=== PATIENT | male | born 1980 | race Caucasian/White ===

== ENCOUNTER 2017-01-22 20:08 | Emergency (ER) | payer SELFPAY ==
[~2017-01-22] VITALS: Ht 177.8 cm; Wt 117.9 kg
[2017-01-22 20:21] VITALS: BP 122/78
[2017-01-22] MEDS ORDERED: CEPH-264 PO (20:34)
[2017-01-22] MEDS ORDERED: FLUT30CR5 TP (20:34)
--- NOTE | 2017-01-22 20:35 | PHYS DOC ---
Past Medical History Past Medical History: Schizophrenia, Other Additional Past Medical Histor: PTSD, Smoking: Cigarettes, Greater than 1 pack/day Alcohol Use: Occasionally Drug Use: None Adult General Chief Complaint Chief Complaint: SKIN PROBLEM [facility] This patient is a pleasant 36 male with a history of multiple superficial skin abscesses that he suffered from in the past. Several years. He has a history of eczema as well as not wall controlled. Patient developed some skin lesions on his chest wall upper right forearm and scrotum that of a gotten progressively larger and more painful over the last week. Patient denies any fevers, chills or other symptoms. Patient has been trying to keep the wounds clean with soap and water without much improvement. He denies any direct trauma to his skin. He is not on any antibiotics allergic to any antibiotics. Patient denies any recent travel outside the country. He denies any other systemic symptoms like joint pain, joint swelling, involvement of his palms or soles, denies any insect bites or recent medication changes. Review of Systems Review of Systems Constitutional: Denies fever or chills [] Eyes: Denies change in visual acuity, redness, or eye pain [] HENT: Denies nasal congestion or sore throat [] Respiratory: Denies cough or shortness of breath [] Cardiovascular: No additional information not addressed in HPI [] GI: Denies abdominal pain, nausea, vomiting, bloody stools or diarrhea [] : Denies dysuria or hematuria [] Musculoskeletal: Denies back pain or joint pain [] Integument: Has multiple skin lesions over his body in various states of healing. He also is one specifically on his penis studies reviewed as I will discharge described as a clear liquid from the lesion itself is he's been squeezing on it. Neurologic: Denies headache, focal weakness or sensory changes [] Endocrine: Denies polyuria or polydipsia [] All other systems were reviewed and found to be within normal limits, except as documented in this note. Allergies Allergies Allergies Coded Allergies Type Severity Reaction Last Updated Verified chlorpromazine Allergy Intermediate 01/22/17 No haloperidol Allergy Intermediate 01/22/17 No Physical Exam Physical Exam Constitutional: Well developed, well nourished, no acute distress, non-toxic appearance. [] Cardiovascular:Heart rate regular rhythm, no murmur [] Lungs & Thorax: Bilateral breath sounds clear to auscultation [] Skin: Warm, dry, is areas of eczema on very states of healing on his forearms and wrists. Patient has multiple lesions to include wanted an antecubital fossa on the right arm, 3 in his chest wall, woman's pain is one of the scrotum. There is shallow continued areas of erythema with cellulitic changes around the area areas with induration without abscess. There is no lymphadenitis, there is no systemic symptoms noted. There is no palm or sole movement. There is no joint involvement no petechia no purpura or bullous lesions. Extremities: No tenderness, no cyanosis, no clubbing, ROM intact, no edema. [] Neurologic: Alert and oriented X 3, normal motor function, normal sensory function, no focal deficits noted. [] Psychologic: Affect normal, judgement normal, mood normal. [] Current Patient Data Vital Signs Vital Signs Date Time Temp Pulse Resp B/P (MAP) Pulse Ox O2 Delivery O2 Flow Rate FiO2 01/22/17 20:21 98.5 85 18 98 Room Air 98.5 EKG EKG [] Radiology/Procedures Radiology/Procedures [] Course & Med Decision Making Course & Med Decision Making Pertinent Labs and Imaging studies reviewed. (See chart for details) []he presents with what I believe is an early cellulitis of areas of skin tissue injury secondary to eczema. Is no evidence of abscess at this time. rash medical decision making reevaluation: The patient is now resting comfortably and feels better, is alert, is nontoxic, and is in no acute distress. The patient has a normal mental status and is neurologically intact. The rash presenting today as part of patient despite does not have any petechiae purpura, there is no palm or sole involvement, there is no joint pain or swelling, there are no mucous membrane lesions, no signs of abscess, and no bullae. The patient appears well, has no fever, no altered mental status, or signs of systemic toxicity. The history, exam, and diagnostic testing (if any) and current condition did not demonstrate signs of sepsis, [place] spotted fever, meningitis, meningococcemia, Lyme disease, toxic shock syndrome, disseminated gonorrhea, endocarditis, measles, mumps, rubella, necrotizing fasciitis, TEN, Chavez Mendez syndrome, pemphigus vulgaris, dress syndrome, staphylococcal scalded skin syndrome or other systemic illness or cardiac further treatment, testing or consultation in the emergency department. The patient's vital signs have been stable, the patient condition is stable and appropriate for discharge. The patient will pursue further outpatient evaluation and primary care management as indicated in the discharge instructions. Dragon Disclaimer Dragon Disclaimer This electronic medical record was generated, in whole or in part, using a voice recognition dictation system. Departure Departure Impression: Primary Impression: Cellulitis Disposition: HOME, SELF-CARE Condition: IMPROVED Patient Instructions: Cellulitis, Eczema, Pruritus Additional Instructions: discharge: I've spoken with the patient and/or caregivers. I've explained the patient's condition, diagnosis and treatment plan based on information available to me at this time. I've answered the patient's and/or caregivers questions and addressed any concerns. The patient and/or caregivers have a good understanding the patient's diagnosis, condition and treatment plan as can be expected at this point. Vital signs have been stabilized. The patient's condition is stable for discharge from the emergency department. The patient will pursue further outpatient evaluation with her primary care provider or other designated consulting physician as outlined in the discharge instructions. Patient and/or caregivers are agreeable to this plan of care and follow-up instructions have been explained in detail. The patient and/or caregivers have received these instructions in written format and expressed understanding of these discharge instructions. The patient and her caregivers are aware that if any significant change in condition or worsening of symptoms should prompt him to immediately return to this of the closest emergency department. If an emergent department is not readily available I would encourage him to call 911. Scripts Fluticasone Propionate (CUTIVATE) 30 Gm Cream..g. 1 WILBER TP BID, #60 GM 1 Refill Prov: JUAN C MORTON MD 01/22/17 Cephalexin (KEFLEX) 500 Mg Capsule 500 MG PO QID for 10 Days, #40 CAP Prov: JUAN C MORTON MD 01/22/17 JUAN C MORTON MD Jan 22, 2017 20:34
== END 2017-01-22 20:52 | disposition home or self-care (01) ==
LOC: ER 20:08
DX: L03.113 Cellulitis of right upper limb (principal); L03.313 Cellulitis of chest wall; N49.2 Inflammatory disorders of scrotum; F20.9 Schizophrenia, unspecified; F43.10 Post-traumatic stress disorder, unspecified; F17.210 Nicotine dependence, cigarettes, uncomplicated; Z88.8 Allergy status to other drugs, medicaments and biological substances
CPT/HCPCS: 99283

== ENCOUNTER 2017-02-09 11:59 | Emergency (ER) | payer SELFPAY ==
[2017-02-09 15:27] LABS: BILIRUBIN,URINE NEGATIVE (NEG); GLUCOSE,URINE NEGATIVE (NEG); NITRITE,URINE NEGATIVE (NEG); PH,URINE 5.5; PROTEIN,URINE NEGATIVE (NEG-TRACE); UROBILINOGEN,URINE 0.2 mg/dL (0.2 mg/dL)
[2017-02-09 15:34] LABS: BARBITURATES NEG (NEG); BENZODIAZEPINES NEG (NEG); CANNABINOIDS NEG (NEG); COCAINE NEG (NEG); METHADONE NEG (NEG); OPIATES NEG (NEG); PHENCYCLIDINE NEG (NEG)
[2017-02-09 15:35] LABS: ETHANOL, URINE NEG (NEG)
[2017-02-09 15:49] LABS: BACTERIA,URINE 0 /HPF (0-FEW); RBC,URINE 0 /HPF (0-2); SQUAMOUS EPITHELIAL CELL,UR FEW /LPF; WBC,URINE OCC /HPF (0-4)
[2017-02-09] MEDS: IV NORMAL SALINE 1000ML BAG 1,000 ML IV (16:03)
[2017-02-09 16:08] LABS: ADD MAN DIFF? NO
[2017-02-09 16:11] LABS: BASO # 0.2 x10^3/uL (0.0-0.2); BASO % 1 % (0-3); EOS % 4 % (0-3); HEMATOCRIT 47.2 % (39.0-53.0); HEMOGLOBIN 15.7 g/dL (13.0-17.5); LYMPH % 25 % (24-48); MEAN CORPUSCULAR HEMOGLOBIN 28 pg (25-35); MEAN CORPUSCULAR HGB CONC 33 g/dL (31-37); MEAN CORPUSCULAR VOLUME 85 fL (79-100); MONO % 4 % (0-9); NEUT % 66 % (31-73); PLATELET COUNT 279 x10^3/uL (140-400); RED BLOOD COUNT 5.59 x10^6/uL (4.30-5.70); RED CELL DISTRIBUTION WIDTH 14.4 % (11.5-14.5)
[2017-02-09 16:23] LABS: ANION GAP 10 (6-14); BLOOD UREA NITROGEN 11 mg/dL (8-26); CALCIUM 9.2 mg/dL (8.5-10.1); CARBON DIOXIDE 28 mmol/L (21-32); CHLORIDE 104 mmol/L (98-107); CREATININE 0.9 mg/dL (0.7-1.3); GFR 95.5; GLUCOSE 97 mg/dL (70-99); INR 0.9 (0.8-1.1); POTASSIUM 4.5 mmol/L (3.5-5.1); PROTHROMBIN TIME PATIENT 11.6 SEC (11.7-14.0); SODIUM 142 mmol/L (136-145)
[2017-02-09 16:24] LABS: PARTIAL THROMBOPLASTIN TIME 34 SEC (24-38)
[2017-02-09 16:29] LABS: ALBUMIN 3.7 g/dL (3.4-5.0); ALK PHOS 103 U/L (46-116); ALT (SGPT) 39 U/L (16-63); AST (SGOT) 20 U/L (15-37); DIRECT BILIRUBIN < 0.1 mg/dL (0.0-0.2); TOTAL BILIRUBIN 0.3 mg/dL (0.2-1.0); TOTAL PROTEIN 7.8 g/dL (6.4-8.2)
[2017-02-09 16:38] LABS: CKMB INDEX 4.9 % (0-4); CKMB MASS 4.1 ng/mL (0.0-3.6); CREATINE KINASE 83 U/L (39-308)
[2017-02-09] MEDS: IOHEXOL 300 MG/ML 100ML VIAL. IV (16:59)
[2017-02-09] MEDS: fentaNYL PF VIAL 100 MCG/2 ML VIAL IV ×2 (17:06→17:32)
== END 2017-02-09 18:23 | disposition home or self-care (01) ==
LOC: ER 11:59
DX: M54.5 Low back pain (principal); R10.9 Unspecified abdominal pain; R32 Unspecified urinary incontinence; I10 Essential (primary) hypertension; F25.9 Schizoaffective disorder, unspecified; F43.10 Post-traumatic stress disorder, unspecified; F41.0 Panic disorder [episodic paroxysmal anxiety]; F17.200 Nicotine dependence, unspecified, uncomplicated; N32.81 Overactive bladder; Z79.899 Other long term (current) drug therapy; Z88.8 Allergy status to other drugs, medicaments and biological substances
CPT/HCPCS: 36415; 72100; 74177; 80048; 80076; 80307; 81001; 82553; 83690; 85025; 85610; 85730; 87086; 96361; 96374; 99285-25; J3010; J7030; Q9967